=== PATIENT | female | born 1975 ===

== ENCOUNTER 2019-02-05 14:12 | Outpatient (CLI) | payer BC ==
--- NOTE | 2019-02-05 16:13 | CT ---
NECK CT WITHOUT CONTRAST: 02/05/19 COMPARISON: None. HISTORY: Evaluate for sialolithiasis, pinching sensation in the right submandibular gland region. TECHNIQUE: Axial CT imaging at 3 mm intervals through the neck without contrast. Coronal and sagittal reformatte d imaging obtained. FINDINGS: The lack of contrast media limits assessment of the vascular structures and for lymphadenopathy. There is a pleural based nodule within the right lung apex medially which measures 7 mm in craniocaud al dimension. The retroantral fat and parapharyngeal fat appears clear bilaterally. The submandibular and the parotid glands appear grossly unremarkable bilaterally. There is a prominent calcification within the lateral posterior aspect of the floor of the mouth on t he right measuring 6-7 mm, best seen on axial image 22 and coronal image [address] within the posterior aspect of the right submandibular duct. No such calcification is seen on the left. There is a low density lesion within the right lobe of the thyroid gland measuring 1.1 cm. Limited assessment for lymphadenopathy appears unremarkable. Review of the osseous structures demonstrates no worrisome lytic or blastic bone lesion. IMPRESSION: 1. Pleural based nodule in the right lung apex measuring 7 mm in craniocaudal dimension, nonspec ific. Recommend further assessment with a full CT examination of the chest. 2. 6 mm calcification within the posterolateral right aspect of the floor of mouth measuring 6-7 mm suggesting a prominent stone within the dorsal aspect of the submandibular duct on the right. 3. Low density nodule within the right lobe of the thyroid gland for which thyroid ultrasound is advised. Code T POS: KEELEY
== END 2019-02-05 14:13 | disposition home or self-care (01) ==
LOC: BICCT 14:12
PROVIDERS: ATTEND Otolaryngology Otolaryngic Allergy
DX: J34.3 Hypertrophy of nasal turbinates (principal); K11.5 Sialolithiasis; R91.1 Solitary pulmonary nodule; E04.1 Nontoxic single thyroid nodule; K13.29 Other disturbances of oral epithelium, including tongue
CPT/HCPCS: 70491